=== PATIENT | female | born 1955 | race Two or more races ===

== ENCOUNTER → 2017-08-15 | Day surgery (SDC) | payer OTHER ==
[~2017-08-15] MED LIST: LIDOCAINE 1% PF 2 ML VIAL. ID; LIDOCAINE 2% PF Vial for OR 5 ML VIAL.; MIDAZOLAM HCL/PF 2 MG/2 ML VIAL. IV; PROPOFOL 40 ML IV; fentaNYL PF VIAL 100 MCG/2 ML VIAL IV
[2017-08-15 08:28] LABS: POC GLUCOSE 177 mg/dL (70-99)
[2017-08-15] MEDS: IV RINGERS,LACTATED 1000ML 1,000 ML IV (08:28)
== END | disposition home or self-care (01) ==
LOC: SURG 07:57
DX: Z12.11 Encounter for screening for malignant neoplasm of colon (principal); K57.30 Diverticulosis of large intestine without perforation or abscess without bleeding; K64.0 First degree hemorrhoids; Z72.89 Other problems related to lifestyle; Z79.84 Long term (current) use of oral hypoglycemic drugs; Z79.899 Other long term (current) drug therapy; Z90.49 Acquired absence of other specified parts of digestive tract; Z90.710 Acquired absence of both cervix and uterus; Z98.51 Tubal ligation status; E78.00 Pure hypercholesterolemia, unspecified; E11.9 Type 2 diabetes mellitus without complications; M19.90 Unspecified osteoarthritis, unspecified site; Z98.890 Other specified postprocedural states
CPT/HCPCS: 45378; 82962; J2001; J2704

== ENCOUNTER → 2018-04-01 | Outpatient (CLI) | payer OTHER ==
[2017-08-15 10:10] VITALS: BP 110/68
[~2018-04-01] MED LIST changes: +ATOR40TA59 PO; +HYDR12.575 PO; -LIDOCAINE 1% PF 2 ML VIAL. ID; -LIDOCAINE 2% PF Vial for OR 5 ML VIAL.; +LISI-334 PO; +METF500T16 PO; -MIDAZOLAM HCL/PF 2 MG/2 ML VIAL. IV; -PROPOFOL 40 ML IV; -fentaNYL PF VIAL 100 MCG/2 ML VIAL IV
--- NOTE | 2018-04-01 11:36 | RAD ---
Examination: CT of the abdomen pelvis without contrast HISTORY: History of left lower quadrant abdominal pain COMPARISON: None available Technique: Axial CT images of the abdomen pelvis were performed without contrast. Coronal and sagittal reformats are performed Exposure: One or more of the following individualized dose reduction techniques were utilized for this examination: 1. Automated exposure control 2. Adjustment of the mA and/or kV according to patient size 3. Use of iterative reconstruction technique FINDINGS: Minimal bibasilar lung atelectasis. No evidence of free air identified in the abdomen. The visualized noncontrasted liver demonstrates decreased attenuation throughout the liver likely hepatic steatosis. The visualized noncontrasted spleen, adrenals grossly appears unremarkable. The stomach is mildly distended. The visualized pancreas grossly appears unremarkable. The small bowel is nondilated. The appendix is normal. Feces and gas noted in the colon. Multiple sigmoid colonic diverticulosis identified. Urinary bladder is mildly distended. Punctate 1 mm calculus identified in the left kidney. No evidence of hydronephrosis. Mild degenerative changes lumbar spine. There is minimal anterolisthesis of L4 on L5. Moderate degenerative changes identified in the lumbar spine. IMPRESSION: 1. Sigmoid colon diverticulosis. 2. Punctate 1 mm calculus left kidney. 3. Hepatic steatosis. Electronically signed by: Karl Blue MD (04/01/2018 11:31 AM) [facility]
== END | disposition home or self-care (01) ==
LOC: CT 10:51
PROVIDERS: ATTEND Nurse Practitioner Gerontology
DX: K57.30 Diverticulosis of large intestine without perforation or abscess without bleeding (principal); N20.0 Calculus of kidney; K76.0 Fatty (change of) liver, not elsewhere classified; E78.00 Pure hypercholesterolemia, unspecified; E11.9 Type 2 diabetes mellitus without complications
CPT/HCPCS: 74176